=== PATIENT | female | born 1985 | race Asian ===

== ENCOUNTER 2017-10-27 05:58 | Inpatient (IN) | payer OTHER ==
[~2017-10-27] VITALS: Ht 167.6 cm; Wt 82.3 kg
[2017-12-01] VITALS (18 sets, daily range): BP systolic 90–153; BP diastolic 47–89; PULSE 84–119; TEMP 97.3–98.6
[2017-12-01 06:34] LABS: BASO % 0.3 % (0.0-2.0); EOS # 0.1 (0.0-0.7); EOS % 0.9 % (0-4.0); GRAN # 6.9 (1.4-6.5); GRAN % 65.5 % (42.2-75.2); HEMATOCRIT 41.8 % (37.0-47.0); HEMOGLOBIN 14.1 g/dl (12.5-16.0); LYMPH # 2.4 (1.2-3.4); LYMPH % 22.8 % (20.0-51.0); MEAN CELL VOLUME 94 fl (80.0-100.0); MEAN CORPUSCULAR HEMOGLOBIN 32 pg (27.0-31.0); MEAN CORPUSCULAR HGB CONC 34 g/dl (33.0-37.0); MONO % 9.5 % (1.7-9.3); PLATELET COUNT 203 K/mm3 (130-400); RED BLOOD COUNT 4.44 M/mm3 (4.10-5.30); REDCELL DISTRIBUTION WIDTH-CV 13.9 % (11.5-14.5)
[2017-12-01] MEDS ORDERED: PRENATAL (06:34)
[2017-12-01] MEDS ORDERED: PERCOCET 325 MG1 TA2 PO (19:58)
[2017-12-01] MEDS ORDERED: MOTRIN 800800 MG/TAB PO (19:58)
[2017-12-02 00:20] VITALS: BP 125/79; PULSE 81; TEMP 97.7
[2017-12-02 07:31] VITALS: BP 128/81; PULSE 89; TEMP 97.3
[2017-12-02 08:28] LABS: HEMATOCRIT 36.1 % (37.0-47.0)
[2017-12-02 15:57] VITALS: BP 142/77; PULSE 92; TEMP 97.9
[2017-12-02 19:50] VITALS: BP 125/86; PULSE 86; TEMP 97.8
[2017-12-03 08:00] VITALS: BP 146/83; PULSE 86; TEMP 97.5
== END 2017-12-03 15:55 | disposition home or self-care (01) | DRG 766 ==
LOC: OB 12-01 05:28 → LDR 12-01 05:57 → OB 12-03 15:55
PROVIDERS: Obstetrics & Gynecology
PROC: 10D00Z1 Extraction of Products of Conception, Low, Open Approach (ICD-10-PCS; principal; 2017-12-01)
DX: O34.211 Maternal care for low transverse scar from previous cesarean delivery (principal); Z37.0 Single live birth; Z3A.39 39 weeks gestation of pregnancy
CPT/HCPCS: J0690; J1885; J2270; J2370; J2405; J2590; J2765; J7120